=== PATIENT | female | born 1980 | race Hispanic/Latino ===

== ENCOUNTER 2018-06-12 16:14 | Emergency (ER) | payer MEDICAID ==
[2018-06-12 16:53] VITALS: BP 131/79
--- NOTE | 2018-06-15 07:47 | XRay Report ---
FINAL REPORT EXAM: XR FOOT 3+V RT HISTORY: foot injury TECHNIQUE: Three views of the right foot were submitted. FINDINGS: There is no evidence of acute fracture or soft tissue injury. There is a small plantar calcaneal spur. IMPRESSION: No acute injury. Small plantar calcaneal spur.
== END 2018-06-12 21:27 | disposition left against medical advice (07) ==
LOC: ED 16:14
DX: M79.671 Pain in right foot (principal); Z53.21 Procedure and treatment not carried out due to patient leaving prior to being seen by health care provider

== ENCOUNTER 2018-06-23 18:27 | Emergency (ER) | payer MEDICAID ==
[2018-06-23 18:44] VITALS: BP 124/77
--- NOTE | 2018-06-23 20:10 | XRay Report ---
FINAL REPORT PROCEDURE: XR FOOT 3+V RT TECHNIQUE: Right foot, three views HISTORY: pain, injury COMPARISON: No prior studies are available for comparison. FINDINGS: There is medial soft tissue swelling. No acute fracture or joint dislocation is seen. IMPRESSION: No acute fracture or joint dislocation. There is medial soft tissue swelling
== END 2018-06-23 21:10 | disposition left against medical advice (07) ==
LOC: ED 18:27
DX: M79.671 Pain in right foot (principal); Z53.21 Procedure and treatment not carried out due to patient leaving prior to being seen by health care provider